=== PATIENT | male | born 1985 | race African-American/Black ===

== ENCOUNTER 2016-08-06 10:03 | Emergency (ER) | payer BC ==
[~2016-08-06] VITALS: Ht 175.3 cm; Wt 152.1 kg
[2016-08-06 10:09] VITALS: BP 145/108; PULSE 112; RESP 18; TEMP 98.1; O2SAT 98
--- NOTE | 2016-08-06 11:00 | PD ---
HPI Chief Complaint: Pain: Acute or Chronic Time Seen by Provider: 10:49 Travel History International Travel<30 days: No Contact w/Intl Traveler<30days: No Traveled to known affect area: No History of Present Illness HPI This is a 30 year old male who has history of type 2 dm and gout presenting with pain along the left first metatarsal radiating to the top of his foot, constant, severe, with inability to walk on his foot. He has had pain like this before when he has had gouty flares. Pt. denies any fevers or chills. PFSH Past Medical History Diabetes: Yes Patient Takes Glucophage: No Gout: Yes Past Surgical History Surgical History: No Previous Surgery Social History Alcohol Use: Yes (RARELY) Tobacco Use: No Substance Use: No Allergies-Medications (Allergen,Severity, Reaction): Coded Allergies: No Known Allergies (Unverified , 08/06/16) Reported Meds & Prescriptions Reported Meds & Active Scripts Active No Active Prescriptions or Reported Medications Review of Systems Except as stated in HPI: all other systems reviewed are Neg Physical Exam Narrative GENERAL:Well appearing, no acute distress SKIN: Focused skin assessment warm and dry. HEAD: Atraumatic. Normocephalic. EYES: Pupils equal and round. No injection or drainage. ENT: Moist mucous membranes NECK: Trachea midline. CARDIOVASCULAR: Regular rate and rhythm. No murmur appreciated. RESPIRATORY: Clear to auscultation. Breath sounds equal bilaterally. GASTROINTESTINAL: Abdomen soft, non-tender, nondistended. MUSCULOSKELETAL: Swelling of the left foot, warm, with tenderness and pain with range of motion at the left first mtp joint. NEUROLOGICAL: Awake and alert. No obvious cranial nerve deficits. PSYCHIATRIC: Appropriate mood and affect; insight and judgment normal. Data Data Last Documented VS Vital Signs Date Time Temp Pulse Resp B/P Pulse Ox O2 Delivery O2 Flow Rate FiO2 08/06/16 10:09 98.1 112 18 145/108 98 MDM Medical Decision Making Medical Screen Exam Complete: Yes Emergency Medical Condition: Yes Differential Diagnosis Gout, septic arthritis, pseudogout Narrative Course This is a 30-year-old male who presents to the emergency department with pain in his left MTP joint. He has a history of gout and this feels similar. He has good passive range of motion of the MTP with no effusion so I doubt septic arthritis. He is well-appearing. I think is appropriate for management with Indocin and follow-up with primary care physician. Diagnosis Primary Impression: Gout Qualified Code: M10.9 - Acute gout of left foot, unspecified cause Patient Instructions: General Instructions Additional Instructions: If you develop fevers, chills, increasing pain or swelling of your foot or worsening symptoms return to the emergency room. Follow-up with her primary care physician 1 week for recheck. Med/Other Pt SpecificInfo: Prescription(s) given Scripts Indomethacin 50 Mg Cap50 Mg PO TID PRN (PAIN SCALE 4 TO 10) 7 Days Ref 0 Take with food, milk, or antacids to decrease stomach adverse effects. Prov:Dagmar Mattson MD 08/06/16 Disposition: 01 DISCHARGE HOME Condition: Stable Dagmar Mattson MD August 06, 2016 11:00
[2016-08-06] MEDS ORDERED: INDO50CA PO (11:09)
== END 2016-08-06 11:16 | disposition home or self-care (01) ==
LOC: PHEFT 10:03
DX: M10.9 Gout, unspecified (principal); E11.9 Type 2 diabetes mellitus without complications
CPT/HCPCS: 99283